=== PATIENT | male | born 1985 | race Caucasian/White ===

== ENCOUNTER 2022-02-11 11:42 | Emergency (ER) | payer OTHER ==
[~2022-02-11] VITALS: Ht 172.7 cm; Wt 87.6 kg
[2022-02-11] MEDS ORDERED: OXYC-403 PO (11:50)
[2022-02-11] MEDS ORDERED: APAP325T4 PO (11:50)
[2022-02-11] MEDS ORDERED: CYCL5TAB PO (11:50)
[2022-02-11] MEDS ORDERED: POLY17PO18 PO (11:50)
[2022-02-11] MEDS ORDERED: DULO1CAP4 PO (11:50)
[2022-02-11] MEDS ORDERED: MM S100C PO (11:50)
[2022-02-11 14:14] VITALS: BP 122/65
== END 2022-02-11 14:17 | disposition home or self-care (01) ==
LOC: M ED 11:42
DX: Z48.01 Encounter for change or removal of surgical wound dressing (principal); L76.22 Postprocedural hemorrhage of skin and subcutaneous tissue following other procedure

== ENCOUNTER → 2023-05-10 | Outpatient (REF) | payer OTHER ==
[~2023-05-10] MED LIST: APAP325T4 PO; CYCL5TAB PO; DULO1CAP4 PO; MM S100C PO; OXYC-673 PO; POLY17PO18 PO
== END ==
LOC: M PLAIMG 15:04 → EDSTATUS 07-15 19:28
PROVIDERS: ATTEND Nurse Practitioner Family
DX: J31.0 Chronic rhinitis (principal); M25.571 Pain in right ankle and joints of right foot; M25.572 Pain in left ankle and joints of left foot

== ENCOUNTER → 2023-06-20 | Outpatient (CLI) | payer OTHER | LOC: M RAD 15:08 | PROVIDERS: ATTEND Physician Assistant | DX: J32.8 Other chronic sinusitis (principal) ==

== ENCOUNTER → 2023-07-08 | Outpatient (REF) | payer OTHER | LOC: M LAB REF 12:31 | PROVIDERS: ATTEND Nurse Practitioner Family | DX: R19.7 Diarrhea, unspecified (principal) ==

== ENCOUNTER → 2023-07-13 | Outpatient (CLI) | payer OTHER | LOC: M RAD 11:05 | PROVIDERS: ATTEND Physician Assistant | DX: R06.00 Dyspnea, unspecified (principal) ==

== ENCOUNTER → 2023-07-29 | Outpatient (CLI) | payer OTHER | LOC: M RAD 09:06 | PROVIDERS: ATTEND Physician Assistant | DX: R06.00 Dyspnea, unspecified (principal); Z65.5 Exposure to disaster, war and other hostilities ==

== ENCOUNTER → 2023-08-02 | Outpatient (CLI) | payer OTHER ==
[~2023-08-02] MED LIST changes: +METHACHOLINE KIT (6 VIAL.NEB PREMIX) INH ONE
== END ==
LOC: M CARPUL 09:27
PROVIDERS: ATTEND Physician Assistant
DX: R06.00 Dyspnea, unspecified (principal)

== ENCOUNTER → 2023-08-03 | Outpatient (CLI) | payer OTHER ==
[~2023-08-03] MED LIST changes: -METHACHOLINE KIT (6 VIAL.NEB PREMIX) INH ONE
[2023-08-03 11:57] LABS: BLOOD UREA NITROGEN 24 MG/DL (9-23); CREATININE FOR GFR 1.12 MG/DL (0.70-1.30); GLOMERULAR FILTRATION RATE > 60.0 (>60)
== END ==
LOC: M LAB 10:05
PROVIDERS: ATTEND Psychiatry & Neurology Neurology
DX: I10 Essential (primary) hypertension (principal)

== ENCOUNTER → 2023-08-09 | Outpatient (CLI) | payer OTHER ==
[~2023-08-09] MED LIST changes: +OMEP-173 PO; +PANT-23 PO; +ZONI50CA11 PO
== END ==
LOC: M RAD 08:30
PROVIDERS: ATTEND Nurse Practitioner Family
DX: R10.811 Right upper quadrant abdominal tenderness (principal)

== ENCOUNTER 2023-08-19 08:46 | Day surgery (SDC) | payer OTHER ==
[~2023-08-19] VITALS: Ht 170.2 cm; Wt 98.1 kg
[2023-08-19] MEDS: NS 1,000 ML IV ONE (09:34)
[2023-08-19] MEDS ORDERED: propofoL 200 MG/20 ML VIAL As Ordered ONE (10:12)
[2023-08-19 10:56] VITALS: TEMP 97.3
[2023-08-19 11:07] VITALS: BP 133/76; O2SAT 95
== END 2023-08-19 11:25 | disposition home or self-care (01) ==
LOC: M OPP 08:46
PROVIDERS: ATTEND Internal Medicine Gastroenterology
DX: K21.01 Gastro-esophageal reflux disease with esophagitis, with bleeding (principal); K29.51 Unspecified chronic gastritis with bleeding; R13.10 Dysphagia, unspecified; K52.9 Noninfective gastroenteritis and colitis, unspecified; D12.4 Benign neoplasm of descending colon; D12.2 Benign neoplasm of ascending colon; K64.8 Other hemorrhoids; K64.4 Residual hemorrhoidal skin tags; R11.2 Nausea with vomiting, unspecified; R32 Unspecified urinary incontinence; Z79.899 Other long term (current) drug therapy; M10.9 Gout, unspecified

== ENCOUNTER → 2023-10-28 | Outpatient (CLI) | payer OTHER | LOC: M RAD 12:52 | PROVIDERS: ATTEND Physician Assistant | DX: R91.8 Other nonspecific abnormal finding of lung field (principal) ==